=== PATIENT | male | born 1990 | race American Indian/Alaskan Native ===

== ENCOUNTER 2016-08-25 18:12 | Emergency (ER) | payer SELFPAY ==
[2016-08-25 20:00] LABS: Hematocrit 47.1 % (35.5-45.6); Hemoglobin 14.9 gm/dl (11.8-15.2); Mean Corpuscular HGB Conc 32 % (32-34); Mean Corpuscular Volume 76 fl (84-94); Red Cell Distribution Width 14.7 % (13.2-15.2); White Blood Count 7.4 K/mm3 (4.5-11.0)
[2016-08-25 20:05] LABS: Anion Gap 18 mmol/L; Blood Urea Nitrogen 7 mg/dL (9-20); Calcium 9.5 mg/dL (8.4-10.2); Carbon Dioxide 26 mmol/L (22-30); Chloride 96.3 mmol/L (98-107); Glucose 112 mg/dL (75-100); Potassium 4.1 mmol/L (3.6-5.0); Sodium 136 mmol/L (137-145)
[2016-08-25 20:17] LABS: Mean Corpuscular Hemoglobin 24 pg (28-32)
[2016-08-25 22:10] LABS: Basophils % (Manual) 0 % (0.0-1.8); Blastocytes % (Manual) 0 %
[2016-08-25 22:11] LABS: Anisocytosis 1+; Diff Status Complete; Giant Platelets Few; Platelet Estimate Appears Decreased
[2016-08-25 22:12] LABS: Platelet Count 93 K/mm3 (140-440)
[2016-08-26] MEDS ORDERED: NACL 0.9% 1000 ML 1,000 ML IV ONE (01:39)
--- NOTE | 2016-08-26 02:04 | Emergency Department Report ---
HPI - General Chief Complaint: Abdominal Pain Time Seen by Provider: 08/26/16 01:34 - HPI HPI: This is a 26-year-old -[place] male presents the emergency department with complaint of a 2 day history of some abdominal cramps and achiness as well as diarrhea that occurs about every 30 minutes. He denies any nausea, vomiting , fever, dysuria, discharge. He tried some Pepto-Bismol for his symptoms without any relief. No recent travel or sick contacts at home. He does not have any past medical history. He does not have a primary care doctor. ED Past Medical Hx - Past Medical History Previous Medical History?: No - Surgical History Past Surgical History?: No - Social History Smoking Status: Current Every Day Smoker Substance Use Type: Alcohol - Medications Home Medications: Home Medications Medication Instructions Recorded Confirmed Last Taken Type No Known Home Medications [No 08/25/16 08/25/16 Unknown History Reported Home Medications] ED Review of Systems ROS: Stated complaint: N/V/D Other details as noted in HPI Comment: All other systems reviewed and negative Constitutional: denies: chills, fever Eyes: denies: eye pain, eye discharge, vision change ENT: denies: ear pain, throat pain Respiratory: denies: cough, shortness of breath, wheezing Cardiovascular: denies: chest pain, palpitations Gastrointestinal: abdominal pain, diarrhea. denies: nausea, vomiting Genitourinary: denies: urgency, dysuria Musculoskeletal: denies: back pain, joint swelling, arthralgia Skin: denies: rash, lesions Neurological: denies: headache, weakness, paresthesias Physical Exam - Physical Exam Vital Signs: Vital Signs 08/25/16 08/26/16 19:05 01:14 Temperature 98.0 F Pulse Rate 86 Respiratory 17 18 Rate Blood Pressure 143/97 O2 Sat by Pulse 98 100 Oximetry Physical Exam: GENERAL: The patient is well-developed well-nourished. HEENT: Normocephalic. Atraumatic. Extraocular motions are intact. Patient has moist mucous membranes. Pupils equal reactive to light bilaterally. NECK: Supple. Trachea is midline. CHEST/LUNGS: Clear to auscultation. There is no respiratory distress noted. HEART/CARDIOVASCULAR: Regular. There is no tachycardia. There is no gallop rub or murmur. ABDOMEN: Abdomen is soft, nontender. Patient has hyperactive bowel sounds. There is no abdominal distention. SKIN: There is no rash. There is no edema. There is no diaphoresis. NEURO: The patient is awake, alert, and oriented. The patient is cooperative. The patient has no focal neurologic deficits. The patient has normal speech. MUSCULOSKELETAL: There is no tenderness or deformity. There is no limitation range of motion. There is no evidence of acute injury. ED Course Vital Signs 08/25/16 08/26/16 19:05 01:14 Temperature 98.0 F Pulse Rate 86 Respiratory 17 18 Rate Blood Pressure 143/97 O2 Sat by Pulse 98 100 Oximetry ED Medical Decision Making - Lab Data Result diagrams: 08/25/16 19:32 08/25/16 19:32 - Radiology Data Radiology results: image reviewed interpreted by me: Abdominal x-ray shows nonspecific nonobstructive bowel gas. - Medical Decision Making 26-year-old male presents the emergency department with a 2 day history of diarrhea and some abdominal cramping. No nausea, vomiting or fever. Patient's labs are unremarkable including no leukocytosis, no electrolyte abnormalities and normal belly labs including bilirubin, lipase and LFTs. Abdominal x-ray shows some nonspecific nonobstructive bowel gas. Urinalysis shows mild dehydration with 20 ketones in the urine but no UTI. Patient was given some IV fluid resuscitation. Upon reevaluation he is feeling improved. The patient has no nausea or vomiting he is able to keep himself hydrated orally. Unknown if the patient has some viral syndrome versus food poisoning versus some dietary reaction, but the patient appears safe for discharge home at this time. He will follow-up with a primary care doctor and return to the ER with any worsening of his symptoms or any acute distress. - Differential Diagnosis gastroenteritis, Giardia, food poisoning, lactose intolerance Critical Care Time: No Critical care attestation.: If time is entered above; I have spent that time in minutes in the direct care of this critically ill patient, excluding procedure time. ED Disposition Clinical Impression: Dehydration Diarrhea Qualifiers: Diarrhea type: unspecified type Qualified Code(s): R19.7 - Diarrhea, unspecified Disposition: DISCHARGED TO HOME OR SELFCARE Is pt being admited?: No Condition: Stable Instructions: Acute Diarrhea (ED), Dehydration (ED) Additional Instructions: Please follow-up with a primary care doctor in the next few days. Increase your oral rehydration. Return to the emergency department with any worsening of your symptoms or any acute distress. Referrals: PRIMARY CARE, [Primary Care Provider] - 3-5 Days HECTOR FOX MD [Staff Physician] - 3-5 Days KAYA SLADE MD [Staff Physician] - 3-5 Days Time of Disposition: 03:46
[2016-08-26 02:59] LABS: Bacteria,Urine 1+ /HPF (Negative); Bilirubin,Urine NEG (Negative); Blood,Urine NEG (Negative); Ketones,Urine 20 mg/dL (Negative); Leukocyte Esterase,Urine NEG (Negative); Mucus,Urine 3+ /HPF; Nitrite,Urine NEG (Negative); Urobilinogen,Urine < 2.0 mg/dL (<2.0)
[2016-08-26 03:19] VITALS: BP 132/99
[2016-08-26] MEDS ORDERED: TORADOL IV ONE (03:36)
--- NOTE | 2016-08-26 07:43 | XRay Report ---
ABDOMEN RADIOGRAPHS INDICATION: Abdominal pain. COMPARISON: None similar at this institution. FINDINGS: Frontal abdominal radiographs demonstrate few small radiodensities in the right hemipelvis, though different in position between the supine and upright projections, presumed retained bowel contrast. Nonobstructive bowel gas pattern without focal suspicious calcifications, pneumatosis or pneumoperitoneum. Left hemipelvic phleboliths. Clear visualized lung bases. EKG leads. Intact bones. CONCLUSION: No acute abdominal radiographic abnormality, as described. Please correlate. Thank you for the opportunity to participate in this patient's care.
== END 2016-08-26 04:26 | disposition home or self-care (01) ==
LOC: ED 18:12
DX: E86.0 Dehydration (principal); R19.7 Diarrhea, unspecified; F17.200 Nicotine dependence, unspecified, uncomplicated
CPT/HCPCS: 36415; 74020; 80048; 81001; 85007; 85025; 96361; 96374; 99284; J1885; J7030